=== PATIENT | male | born 1980 | race Caucasian/White ===

== ENCOUNTER 2024-03-01 12:08 | Emergency (ER) | payer OTHER, SELFPAY ==
[2024-03-01 12:21] VITALS: BP 144/95; PULSE 74; RESP 14; TEMP 36.1; O2SAT 98; BMI 28.4
--- NOTE | 2024-03-01 12:24 | DI.RAD.S_ITS ---
PROCEDURE: XR SHOULDER RT MIN 2V INDICATIONS: shoulder pain TECHNIQUE: 3 views of the shoulder were acquired. COMPARISON: None. FINDINGS: Bones: No fractures or dislocations. No suspicious bony lesions. Visualized ribs appear intact. Soft tissues: No suspicious soft tissue calcifications. IMPRESSION: No acute bony abnormality. Dictated by: Isa Serrano MD, PhD on 03/01/2024 at 13:05 Approved by: Isa Serrano MD, PhD on 03/01/2024 at 13:06
--- NOTE | 2024-03-01 13:42 | ED.EXTPRO ---
HPI - Extremity Problem <Perla Richards PA-C - Last Filed: 03/01/24 18:58> General Chief complaint: Extremity Problem,Nontraumatic Stated complaint: Rt arm pain Time Seen by Provider: 03/01/24 13:30 Source: patient Mode of arrival: Ambulatory History of Present Illness HPI Narrative: 43-year-old male with no reported past medical history presents to the ED with 3 days of right-sided shoulder pain. Patient endorses doing a lot of yd work, cutting grass over the weekend, following which the pain started. Patient is having pain with movement of the right arm. No numbness, tingling, weakness. Related Data Allergies Allergy/AdvReac Type Severity Reaction Status Date / Time No Known Drug Allergies Allergy Verified 03/01/24 12:21 Review of Systems <Perla Richards PA-C - Last Filed: 03/01/24 18:58> Constitutional Constitutional: Denies chills, Denies fatigue, Denies fever(s), Denies frequent falls, Denies lethargy and Denies weakness Eyes Eyes: Denies change in vision, Denies eye discharge, Denies irritation and Denies loss of vision ENT Ears, Nose, Mouth, and Throat: Denies change in voice, Denies dizziness, Denies neck pain, Denies sore throat and Denies throat swelling Cardiovascular Cardiovascular: Denies chest pain, Denies irregular heart rhythm, Denies lightheadedness, Denies palpitations, Denies dyspnea, Denies dyspnea on exertion and Denies orthopnea Respiratory Respiratory: Denies cough, Denies dyspnea, Denies dyspnea on exertion and Denies wheezing Gastrointestinal Gastrointestinal: Denies abdominal pain, Denies change in bowel habits, Denies diarrhea, Denies nausea and Denies vomiting Musculoskeletal Musculoskeletal: Denies muscle weakness, Denies neck pain, Denies numbness and Denies tingling Comments: Right-sided shoulder pain Integumentary/Breasts Skin/Breast: Denies pruritus, Denies erythema, Denies rash and Denies wounds Neurologic Neurologic: Denies behavioral changes, Denies confusion, Denies dizziness, Denies frequent falls, Denies loss of vision, Denies numbness, Denies tingling and Denies weakness Psychiatric Psychiatric: Denies anxiety, Denies behavioral changes, Denies confusion, Denies depression, Denies homicidal ideation and Denies suicidal ideation Endocrine Endocrine: Denies fatigue, Denies flushing and Denies palpitations Hematologic/Lymphatic Hematologic/Lymphatic: Denies easy bruising Allergic/Immunologic Allergic/Immunologic: Denies urticaria, Denies throat swelling and Denies wheezing Patient History <Perla Richards PA-C - Last Filed: 03/01/24 18:58> Social History Smoking Status: Unknown if ever smoked Smoking Status: Unknown if ever smoked alcohol intake frequency: holidays/special occasions only Substance Use Type: does not use Exam <ePrla Richards PA-C - Last Filed: 03/01/24 18:58> Narrative Exam Narrative: Const General:?cooperative, healthy appearing and comfortable [facility] Head:?normal to inspection Ears:?hearing grossly normal bilaterally Nose:?external nose normal Face and sinus:?normal facial exam and sinuses nontender Mouth:?oral mucosae normal Throat:?posterior oropharynx normal Eyes General:?appearance normal, both eyes and all related structures Neck Neck:?normal visual inspection and no lymphadenopathy noted Resp Effort & Inspection:?normal respiratory effort Auscultation:?clear to auscultation bilaterally Cardio Rate:?regular rate Rhythm:?regular rhythm Musculoskeletal No tenderness to palpation of the right shoulder. No bruising, deformities. Sensation intact. Range of movement limited by pain. Neurovascularly intact. Neuro General:?patient alert, patient awake and patient oriented x3 Initial Vital Signs Initial Vital Signs: Vital Signs Temperature 97.0 F L 03/01/24 12:21 Pulse Rate 74 03/01/24 12:21 Respiratory Rate 14 03/01/24 12:21 Blood Pressure 144/95 H 03/01/24 12:21 Pulse Oximetry 98 03/01/24 12:21 Oxygen Delivery Method Room Air 03/01/24 12:21 <Ruby Archibald DO - Last Filed: 03/02/24 08:43> Initial Vital Signs Initial Vital Signs: Vital Signs Temperature 97.0 F L 03/01/24 12:21 Pulse Rate 74 03/01/24 12:21 Respiratory Rate 14 03/01/24 12:21 Blood Pressure 144/95 H 03/01/24 12:21 Pulse Oximetry 98 03/01/24 12:21 Oxygen Delivery Method Room Air 03/01/24 12:21 Course <MANUEL Bates Last Filed: 03/01/24 18:58> Orders Ordered: Discontinued Medications Ketorolac Tromethamine (Ketorolac 30 Mg/Ml Vial) 30 mg IM NOW ONE Stop: 03/01/24 13:37 Last Admin: 03/01/24 13:45 Dose: 30 mg Documented By: KATHRIN Vital Signs Vital signs: Vital Signs - 8 hr 03/01/24 12:21 03/01/24 14:02 Temperature 97.0 F L Pulse Rate 74 73 Respiratory Rate 14 18 Blood Pressure 144/95 H 159/91 H Pulse Oximetry 98 97 Oxygen Delivery Method Room Air Room Air <Ruby Archibald DO - Last Filed: 03/02/24 08:43> Orders Ordered: Discontinued Medications Ketorolac Tromethamine (Ketorolac 30 Mg/Ml Vial) 30 mg IM NOW ONE Stop: 03/01/24 13:37 Last Admin: 03/01/24 13:45 Dose: 30 mg Documented By: KATHRIN Vital Signs Vital signs: Vital Signs - 8 hr 03/01/24 12:21 03/01/24 14:02 Temperature 97.0 F L Pulse Rate 74 73 Respiratory Rate 14 18 Blood Pressure 144/95 H 159/91 H Pulse Oximetry 98 97 Oxygen Delivery Method Room Air Room Air MDM - Extremity (Nontraumatic) <Perla Richards PA-C - Last Filed: 03/01/24 18:58> MDM Narrative Medical decision making narrative: 43-year-old male with no reported past medical history presents to the ED with 3 days of right-sided shoulder pain. Obtained x-ray which was negative for fracture/dislocation. Patient's symptoms consistent with a musculoskeletal sprain/strain. Patient fitted in a sling for comfort. Recommend Tylenol, ibuprofen. Recommend follow-up with PCP for further evaluation. ED return precautions discussed with patient. Patient verbalized understanding. Medical records reviewed: Yes Discharge Plan Departure Patient Disposition: Home Clinical Impression: Shoulder sprain Qualifiers: Encounter type: initial encounter Shoulder sprain type: unspecified sprain Laterality: right Qualified Code(s): S43.401A - Unspecified sprain of right shoulder joint, initial encounter Instructions: DI for Shoulder Sprain Activity Restrictions/Additional Instructions: You were evaluated in the ED today for a shoulder injury. Your x-ray did not show any fractures or dislocations. Your symptoms are most consistent with a musculoskeletal sprain/strain of the shoulder. You were given an injection of Toradol in the ED today and fitted in a sling for comfort. Please continue taking 800 mg of ibuprofen every 8 hours with food. You may also add on 1000 mg of Tylenol every 8 hours. Please follow-up with your PCP as soon as possible. Return to the ED if you have worsening symptoms, numbness, tingling, weakness. Referrals: Provider,Norah BOYKIN [Primary Care Provider] - Stand Alone Forms: Patient Portal/API ED Sign-out <Ruby Archibald DO - Last Filed: 03/02/24 08:43> Cosign ED Attending Angely Attestation: I was available for consultation.
[2024-03-01] MEDS: KETOROLAC 30 MG/ML VIAL IM (13:45)
[2024-03-01 14:02] VITALS: BP 159/91; PULSE 73; RESP 18; O2SAT 97
== END 2024-03-01 14:03 | disposition home or self-care (01) ==
PROVIDERS: Emergency Provider Student in an Organized Health Care Education/Training Program
DX: S43.401A Unspecified sprain of right shoulder joint, initial encounter (principal); X50.9XXA Other and unspecified overexertion or strenuous movements or postures, initial encounter
CPT/HCPCS: 73030; 96372; 99283; J1885